=== PATIENT | female | born 1980 | race Caucasian/White ===

== ENCOUNTER 2020-02-21 14:44 | Emergency (ER) | payer BC, SELFPAY ==
[2020-02-21 14:50] VITALS: BP 153/101; PULSE 117; RESP 24; TEMP 36.4; O2SAT 97
--- NOTE | 2020-02-21 14:50 | ED.LOWEXIN ---
HPI - Extremity Injury (Lower) General Chief Complaint: Extremity Injury, Lower Stated Complaint: right leg pain/swollen/red Time Seen by Provider: 02/21/20 14:50 Source: patient and RN notes reviewed History of Present Illness HPI Narrative: Patient is a 39-year-old female who presents the urgent care with complaints of right lower leg redness and swelling. Patient states it became red and painful over the last 24 hours but she did notice some nausea and chills on Sunday evening after sitting out in the sun for long period of time. Patient states that she does have a history of cellulitis and denies any history of DVT. Patient denies of any chest pain or shortness of breath. Denies of any known fevers. No other acute complaints. No acute distress noted. Patient read the plan of care. Related Data Allergies Allergy/AdvReac Type Severity Reaction Status Date / Time No Known Allergies Allergy Verified 02/21/20 14:59 Review of Systems Review of Systems: Narrative: CONSTITUTIONAL: Denies fever, chills, or sweats. EYES: Denies visual changes, redness, or discharge. ENT: Denies rhinorrhea, congestion, sore throat, or otalgia. CARDIOVASCULAR: Denies chest pain, palpitations, or edema. RESPIRATORY: Denies cough or dyspnea. GASTROINTESTINAL: Denies abdominal pain, nausea, vomiting, or diarrhea. GENITOURINARY: Denies dysuria or hematuria. SKIN: Denies rash or itching. MUSCULOSKELETAL: Reports of redness swelling and pain to the right lower leg NEUROLOGIC: Denies headache, numbness, or weakness. All other systems reviewed are negative, except as documented in HPI. PMFSH Comments At the time of my signature, I reviewed and agree with the nursing past medical, surgical, social, and family history. There is no relevant family history pertinent to the patient complaint. Exam Narrative: Exam Narrative: GENERAL: This is a well-nourished, well-developed patient, in no apparent distress. Morbidly obese HEAD: normocephalic, atraumatic. EYES: PERRL. Sclera clear/white. Vision is grossly intact. EARS: External ears normal NOSE: External nose normal with no obvious nasal discharge, nares without redness, no rhinorrhea. THROAT: Mucous membranes moist NECK: Neck supple SKIN: warm, intact with no suspicious lesions or rash, good texture and turgor. NEURO: awake, alert, and oriented to person, place and time. There were no obvious focal neurologic abnormalities. EXTREMITIES: Bilateral lower extremity lymphedema with notable erythema to right lateral lower leg with mild tenderness, negative Homans sign bilaterally Course Vital Signs Vital signs: Vital Signs Temperature 97.5 F L 02/21/20 14:50 Pulse Rate 117 H 02/21/20 14:50 Respiratory Rate 24 H 02/21/20 14:50 Blood Pressure 153/101 H 02/21/20 14:50 Pulse Oximetry 97 02/21/20 14:50 Temperature 97.5 F L 02/21/20 14:50 Pulse Rate 117 H 02/21/20 14:50 Respiratory Rate 24 H 02/21/20 14:50 Blood Pressure 153/101 H 02/21/20 14:50 Pulse Oximetry 97 02/21/20 14:50 Reviewed?patient is informed that they may have pre-hypertension or hypertension based on a blood pressure reading in the department. I recommend the patient call the primary care provider listed on their discharge instructions or a physician of their choice this week to arrange follow-up for further evaluation of possible pre-hypertension or hypertension. MDM - Extremity Injury (Lower) MDM Narrative Medical decision making narrative: Advised the patient to complete oral antibiotic regimen as prescribed. Make sure to eat and drink with the medication to avoid nausea. If you develop any increase in redness, swelling, pain, shortness of breath, difficulty breathing?go to the emergency room. Medication should improve the area within 24 hours. Therefore, if you notice no improvement?you need to go to the emergency room to rule out DVT. Follow-up with your PCP for reevaluation within 2 to 5 days. Differential Di
== END 2020-02-21 15:10 | disposition home or self-care (01) ==
PROVIDERS: Emergency Provider Nurse Practitioner Family
DX: L03.115 Cellulitis of right lower limb (principal)
CPT/HCPCS: 99213; G0463